=== PATIENT | female | born 1950 | race Caucasian/White ===

== ENCOUNTER 2020-01-28 14:07 | Outpatient (CLI) | payer MEDICARE, SELFPAY ==
--- NOTE | ~2020-01-28 | XR_ITS ---
XR chest 2V DATE: 01/28/2020 14:31 INDICATION: Shortness of breath TECHNIQUE: PA and lateral views COMPARISON: 04/29/2019 2 view chest 04/29/2019 CT pulmonary scan FINDINGS: Normal heart size. There is mild discoid atelectasis or scarring in both mid lung zones. No pulmonary consolidation, pleural effusion, pulmonary vascular congestion or pneumothorax. Mild eleva tion of right leaf of diaphragm. Diffuse osteopenia. Status post surgical anterior cervical spine fusion. Surgical clips overlie the upper mid abdomen. IMPRESSION: Mild discoid atelectasis or scarring in the midlung zones Reviewed, dictated and finalized at location A.
== END 2020-01-28 14:08 | disposition home or self-care (01) ==
LOC: ANHIMG 14:15
PROVIDERS: PCP Family Medicine; Visit Provider Physician Assistant
DX: R06.02 Shortness of breath (principal); R91.8 Other nonspecific abnormal finding of lung field
CPT/HCPCS: 71046

== ENCOUNTER 2020-03-03 15:08 | Outpatient (CLI) | payer MEDICARE, SELFPAY ==
--- NOTE | ~2020-03-03 | MM_ITS ---
EXAMINATION: MM screening cain BI w lisbeth HISTORY: Screening mammogram TECHNIQUE: Craniocaudal and mediolateral oblique 3-D tomosynthesis images were obtained and synthetic 2-D images were generated. CAD analysis was submitted and interpreted. COMPARISON: Comparison to multiple prior studies sequentially, with oldest reviewed study dated 03/16. BREAST PARENCHYMAL COMPOSITION: There are scattered areas of fibroglandular density. FINDINGS: No significant change to benign-appearing bilateral breast calcifications. There is no evid ence of suspicious mass, calcification, or architectural distortion to suggest malignancy in either b reast. There has been no suspicious interval change. IMPRESSION: 1. No mammographic evidence of malignancy. 2. Recommend routine screening mammography in one year. BI-RADS Category 2: Benign finding(s). Reviewed, dictated and finalized at location A.
--- NOTE | ~2020-03-03 | DEXA_ITS ---
Bone Density Report Name: Elizabeth England Age: 69 Sex: Female Ethnicity: White Date of : 1950 Indication: osteopenia; height loss; prior fracture; hysterectomy; Referring Provider: Farhat Liang Study: Bone densitometry was performed. Exam Date: March 03, 2020 Accession number: [id number] Bone Density: Region BMD T-score Z-score Classification Femoral Neck (Left) 0.638 -1.9 -0.2 Osteopenia Total Hip (Left) 0.757 -1.5 -0.1 Osteopenia Total Hip Bilateral Avg 0.722 -1.8 -0.4 Osteopenia Femoral Neck (Right) 0.650 -1.8 -0.1 Osteopenia Total Hip (Right) 0.686 -2.1 -0.7 Osteopenia World Health Organization criteria for BMD impression classify patients as: Normal (T-score at or above -1.0), Osteopenia (T-score between -1.0 and -2.5), or Osteoporosis (T-score at or below -2.5). 10-year Fracture Risk(1): Major Osteoporotic Fracture 16% Hip Fracture 2.5% Reported Risk Factors: [place] (), Neck BMD=0.638, BMI=33.2, previous fracture (1) FRAX(R) Version 3.08. Fracture probability calculated for an untreated patient. Fracture probability may be lower if the patient has received treatment. Previous Exams: Region Exam Age BMD T-score BMD Change BMD Change Date g/cm2 vs Baseline vs Previous Total Hip(Left) 03/03/2020 69 0.757 -1.5 -0.007(-0.9%)# -0.038(-4.8%)* 12/13/2017 67 0.795 -1.2 0.031(4.0%)# 0.043(5.7%)# 12/09/2013 63 0.752 -1.6 -0.012(-1.6%)# -0.012(-1.6%)# 01/08/2008 57 0.764 -1.5 Total Hip(Right) 03/03/2020 69 0.686 -2.1 -0.073(-9.6%)# -0.058(-7.8%)* 12/13/2017 67 0.744 -1.6 -0.015(-1.9%)# -0.043(-5.5%)# 12/09/2013 63 0.787 -1.3 0.029(3.8%)# 0.029(3.8%)# 01/08/2008 57 0.758 -1.5 *Denotes significance at 95% confidence level, LSC for Total Hip = 0.027 g/cm2 Clinical Information Provided by Patient: Has had a low trauma fracture Has used the following medications: Vitamin D, Calcium Has the following medical conditions: Hysterectomy Patient maximum height was 63 Menopause Age: 27 No regular weight bearing exercise Does not regularly consume dairy products Drinks caffeinated beverages Onset of menses at age 10 Number of children 2 Impression: The patient has low bone mass, based on the Right Total Hip T-score. The patient has an estimated ten-year risk of hip fracture of 2.5% and an estimated ten-year risk of major fracture of 16%, based on the WHO FRAX algorithm. The patient has risk factors, including: previous fracture. The BMD for the
== END 2020-03-03 15:09 | disposition home or self-care (01) ==
PROVIDERS: PCP Family Medicine; Visit Provider Physician Assistant
DX: Z12.31 Encounter for screening mammogram for malignant neoplasm of breast (principal); Z78.0 Asymptomatic menopausal state; M85.89 Other specified disorders of bone density and structure, multiple sites
CPT/HCPCS: 77063; 77067; 77080

== ENCOUNTER 2020-03-23 13:56 | Outpatient (CLI) | payer MEDICARE, SELFPAY ==
--- NOTE | ~2020-03-23 | CT_ITS ---
EXAMINATION: CT abdomen pelvis w con EXAM DATE: 03/23/2020 15:18 INDICATION: Periumbilical abdominal pain. TECHNIQUE: Spiral CT of the abdomen and pelvis was performed following intravenous injection of 100 m L Omnipaque 350. Axial, coronal and sagittal images were reviewed. The dose-length product (DLP) fo r this examination was 582.98 mGy-cm. The exposure was tailored according to patient size (auto mA e xposure control), and iterative reconstruction (ASIR) was used as additional dose reduction technique . Comparison is made to prior examination from 12/14/2004. FINDINGS: There is a small fat-containing right-sided Spigelian hernia, see axial images 110-115. Thi s is new compared to 2005 study. No umbilical hernia. The liver, spleen, adrenal glands and pancreas are unremarkable. Gallbladder not identified, patient likely has had cholecystectomy. Portal and s plenic veins are patent. Kidneys enhance symmetrically. There is no hydronephrosis. Several renal c ysts largest on the left measuring 4.4 cm. The uterus is not identified and has likely been surgical ly resected. The bladder is unremarkable. There is no retroperitoneal or pelvic lymphadenopathy. There is mild to moderate scattered arteriosclerotic disease. The appendix is not positively visualized. There is no pericecal inflammatory change to suggest appe ndicitis. There are surgical changes from intact gastric bypass surgery. There is expected amount of colonic stool. No free intraperitoneal gas. The heart is normal in size. There are no pericar dial or pleural effusions. Small right lung basilar posterior medial scarring. There are no osteobl astic or osteolytic lesions identified. There are old left inferior and superior rami fractures. Mil d to moderate thoracolumbar levoscoliosis. Lumbar fusion hardware L3-S1. Advanced thoracolumbar spond ylosis. Chronic appearing T12 compression fracture. IMPRESSION: 1. Unremarkable umbilicus. 2. Small right-sided fat-containing Spigelian hernia. Reviewed, dictated and finalized at location A.
[2020-03-23 14:59] LABS: Estimated Glomerular Filt Rate > 60
== END 2020-03-23 13:57 | disposition home or self-care (01) ==
PROVIDERS: PCP Family Medicine; Visit Provider Surgery
DX: K44.9 Diaphragmatic hernia without obstruction or gangrene (principal)
CPT/HCPCS: 36415; 74177; Q9967

== ENCOUNTER 2021-07-05 16:08 | Outpatient (CLI) | payer MEDICARE, SELFPAY ==
--- NOTE | ~2021-07-05 | MM_ITS ---
EXAMINATION: MM screening cain BI w lisbeth HISTORY: Screening mammogram TECHNIQUE: Craniocaudal and mediolateral oblique 3-D tomosynthesis images were obtained and synthetic 2-D images were generated. CAD analysis was submitted and interpreted. COMPARISON: No prior mammogram is available for comparison at this institution. BREAST PARENCHYMAL COMPOSITION: There are scattered areas of fibroglandular density. FINDINGS: Scattered bilateral benign calcifications are again noted. There is no evidence of suspicio us mass, calcification, or architectural distortion to suggest malignancy in either breast. There has been no suspicious interval change. IMPRESSION: 1. No mammographic evidence of malignancy. 2. Recommend routine screening mammography in one year. BI-RADS Category 2: Benign finding(s). Reviewed, dictated and finalized at location A.
== END 2021-07-05 16:09 | disposition home or self-care (01) ==
PROVIDERS: PCP Family Medicine; Visit Provider Nurse Practitioner Family
DX: Z12.31 Encounter for screening mammogram for malignant neoplasm of breast (principal)
CPT/HCPCS: 77063; 77067

== ENCOUNTER 2021-10-04 14:41 | Outpatient (CLI) | payer MEDICARE, SELFPAY ==
[2021-10-04 15:53] LABS: Basophils Absolute Auto 0.1 K/mm3 (0.0-0.1); Basophils Percent Auto 0.5 % (0.2-1.2); Eosinophils Absolute Auto 0.1 K/mm3 (0-0.3); Eosinophils Percent Auto 0.5 % (0-4.4); Hematocrit 39.2 % (37.0-47.0); Hemoglobin 13.4 g/dL (12.0-15.0); Immature Granulocyte Absolute 0.03 K/mm3 (0.00-0.031); Immature Granulocyte Percent A 0.3 % (0-0.5); Lymphocytes Absolute Auto 1.88 K/mm3 (0.9-3.2); Lymphocytes Percent Auto 18.4 % (18.3-44.2); Mean Corpuscular HGB Conc 34.2 g/dl (32-36); Mean Corpuscular Hemoglobin 33.8 pg (26-34); Mean Corpuscular Volume 98.7 fl (80-100); Mean Platelet Volume 8.7 fl (7.4-10.4); Monocytes Absolute Auto 0.9 K/mm3 (0.1-0.6); Monocytes Percent Auto 8.7 % (2.6-8.5); Neutrophils Absolute Auto 7.3 K/mm3 (1.3-6.7); Neutrophils Percent Auto 71.6 % (45.5-73.1); Platelet Count Result 229 k/mm3 (150-375); Red Blood Count 3.97 M/mm3 (4.2-5.4); Red Cell Distribution Width 12.9 % (11.5-14.5); White Blood Count 10.2 K/mm3 (4.5-10.0)
[2021-10-04 18:45] LABS: Iron 93 ug/dL (37-170)
[2021-10-04 18:48] LABS: Anion Gap 8 mmol/L (8-16); Blood Urea Nitrogen 11 mg/dL (7-17); Calcium 9.3 mg/dL (8.4-10.2); Carbon Dioxide 29 mmol/L (22-30); Chloride 96 mmol/L (98-107); Estimated Glomerular Filt Rate > 60; Glucose 103 mg/dL (65-110); Potassium 3.9 mmol/L (3.4-5.0); Sodium 133 mmol/L (137-145)
[2021-10-04 19:00] LABS: Percent Iron Saturation 28 % (20-50)
== END 2021-10-04 14:42 | disposition home or self-care (01) ==
PROVIDERS: PCP Family Medicine; Visit Provider Family Medicine
DX: E55.9 Vitamin D deficiency, unspecified (principal); T14.8XXA Other injury of unspecified body region, initial encounter; R53.83 Other fatigue; K25.9 Gastric ulcer, unspecified as acute or chronic, without hemorrhage or perforation
CPT/HCPCS: 36415; 80048; 82728; 83540; 83550; 84443; 85025

== ENCOUNTER 2021-10-16 10:43 | Outpatient (CLI) | payer MEDICARE, SELFPAY ==
--- NOTE | ~2021-10-16 | MR_ITS ---
EXAMINATION: MR lumbar spine wo/w con DATE: 10/16/2021 11:59 INDICATION: Full incontinence of feces. TECHNIQUE: Magnetic resonance imaging (MRI) of the lumbar spine was performed without and with 15 mL MultiHance intravenous contrast. Sequences included sagittal T2-weighted FSE, sagittal STIR FSE, chantale nal STIR FSE, and sagittal and axial T1-weighted FSE. Postcontrast sequences included axial T2-weight ed FSE and axial and sagittal T1-weighted FS FSE. COMPARISON: Lumbar spine MRI 01/25/2010 FINDINGS: There is 21 degrees levoscoliosis of thoracolumbar spine. There are changes of anterior and posterior fusion procedures from L3 to S1 with interbody devices and pedicle screws. There is a lunchroom monitor giovana compression fracture of T12 with 2/5 loss of height. There is mildly decreased disc height at T12 -L1 and severely decreased disc height at L1-L2 and L2-L3. The distal spinal cord signal intensity is normal. The conus medullaris is at L1-L2. There are cysts in the kidneys measuring up to 3.6 cm on t he left. The following disc levels are specifically discussed: T12-L1: The disc is bulging. There is moderate bilateral facet joint osteoarthritis. There is mild bi lateral neural foraminal stenosis. There is mild central canal stenosis. L1-L2: The disc is bulging and has an annular fissure. There is moderate bilateral facet joint osteoa rthritis. There is moderate right and mild left neural foraminal stenosis. There is mild central lakisha l stenosis. L2-L3: The disc does not extend beyond the endplate margin. There is mild bilateral facet joint hyper trophy. There is no neural foraminal stenosis. There is no central canal stenosis. L3-L4: There is mild right and moderate left facet joint hypertrophy. There is mild bilateral neural foraminal stenosis. There is no central canal stenosis. L4-L5: There is moderate bilateral facet joint hypertrophy. There is moderate bilateral neural forami nal stenosis. There is no central canal stenosis. L5-S1: There is mild bilateral facet joint hypertrophy. There is mild bilateral neural foraminal sten osis. There is no central canal stenosis. IMPRESSION: 1. Severe lumbar spondylosis, worsened at T12-L1 and L1-L2 from 01/25/2010. 2. Anterior and posterior fusion procedures from L3 to S1. 3. Thoracolumbar levoscoliosis. Reviewed, dictated and finalized at location A. [employer]
== END 2021-10-16 10:44 | disposition home or self-care (01) ==
LOC: ANHIMG 10:49
PROVIDERS: PCP Family Medicine; Visit Provider Physician Assistant
DX: M47.25 Other spondylosis with radiculopathy, thoracolumbar region (principal); R15.9 Full incontinence of feces; Z98.1 Arthrodesis status; M48.05 Spinal stenosis, thoracolumbar region; M47.27 Other spondylosis with radiculopathy, lumbosacral region; M48.07 Spinal stenosis, lumbosacral region; M41.9 Scoliosis, unspecified
CPT/HCPCS: 72158; A9577

== ENCOUNTER 2024-03-20 08:40 | Outpatient (CLI) | payer OTHER, SELFPAY ==
--- NOTE | ~2024-03-20 | MM_ITS ---
EXAMINATION: MM screening cain BI w lisbeth HISTORY: Screening mammogram TECHNIQUE: Craniocaudal and mediolateral oblique 3-D tomosynthesis images were obtained and synthetic 2-D images were generated. CAD analysis was submitted and interpreted. COMPARISON: 07/05/2021, 03/03/2021, 03/03/2020 bilateral screening mammogram examinations BREAST PARENCHYMAL COMPOSITION: There are scattered areas of fibroglandular density. FINDINGS: There are scattered bilateral benign calcifications. Small bilateral breast masses are suggested. Bilateral diagnostic mammogram is recommended, with ult rasound if required. IMPRESSION: 1. Suggestion of bilateral small bilateral breast masses 2. Bilateral diagnostic mammography is recommended, with ultrasound if required BI-RADS Category 0: Incomplete: Needs additional imaging evaluation. Reviewed, dictated and finalized at location B.
== END 2024-03-20 08:41 | disposition home or self-care (01) ==
DX: Z12.31 Encounter for screening mammogram for malignant neoplasm of breast (principal); R92.8 Other abnormal and inconclusive findings on diagnostic imaging of breast
CPT/HCPCS: 77063; 77067

== ENCOUNTER 2024-04-14 10:13 | Outpatient (CLI) | payer OTHER, SELFPAY ==
--- NOTE | ~2024-04-14 | MMUS_ITS ---
EXAMINATION: MM diagnostic cain BI w lisbeth, US breast BI complete HISTORY: Follow-up bilateral breast asymmetries TECHNIQUE: Additional 3-D tomosynthesis images of the breasts were performed and synthetic 2-D images were generated. CAD analysis was submitted and interpreted. High resolution bilateral complete breas t ultrasound was performed. COMPARISON: Comparison to multiple prior studies sequentially, with oldest reviewed study dated 07/28. BREAST PARENCHYMAL COMPOSITION: Not dense: There are scattered areas of fibroglandular density. FINDINGS: MAMMOGRAPHIC FINDINGS: There are scattered breast nodules in the right breast some which are new compared with prior examina tion. There are no suspicious calcifications or architectural distortion. There are no new masses, ca lcifications or architectural distortion in the left breast to suggest malignancy. ULTRASOUND: Complete bilateral US of all 4 quadrants of the breasts and retroareolar region was reviewed. Right breast: At 1:00, 4 cm from the nipple is an irregular shaped hypoechoic 5 mm mass with some ang ular margins. No posterior features. There is marginal vascularity. At 12:00, 2 cm from the nipple th ere is a parallel shaped slightly irregular hypoechoic mass measuring 6 mm without posterior features . No internal vascularity. Left breast: Normal heterogeneous echotexture without focal solid or cystic mass. IMPRESSION: 1. Abnormal right breast masses located at 1:00, 4 cm from the nipple measuring 5 mm and at 12:00, 2 cm from the nipple measuring 6 mm. 2. Ultrasound-guided breast biopsy of each of these lesions recommended. BI-RADS category 4, suspicious findings. Reviewed, dictated and finalized at location B. IMPRESSION: 1. Abnormal right breast masses located at 1:00, 4 cm from the nipple measuring 5 mm and at 12:00, 2 cm from the nipple measuring 6 mm. 2. Ultrasound-guided breast biopsy of each of these lesions recommended. BI-RADS category 4, suspicious findings.
== END 2024-04-14 10:14 | disposition home or self-care (01) ==
LOC: ANHIMG 10:14
DX: R92.8 Other abnormal and inconclusive findings on diagnostic imaging of breast (principal)
CPT/HCPCS: 76641; 77062; 77066; G0279